=== PATIENT | male | born 1985 | race Caucasian/White ===

== ENCOUNTER 2021-08-14 18:41 | Emergency (ER) | payer SELFPAY ==
[~2021-08-14] VITALS: Ht 175.3 cm; Wt 104.3 kg
[2021-08-14] MEDS ORDERED: ALBUTEROL FS 2.5 MG/3 ML VIAL.NEB NEB ONE (19:00)
[2021-08-14] MEDS ORDERED: IPRATROPIUM NEB FS 0.5 MG/2.5 ML AMPUL.NEB NEB ONE (19:00)
[2021-08-14] MEDS ORDERED: predniSONE 20 MG TABLET PO ONE (19:00)
--- NOTE | 2021-08-14 19:00 | NUR ---
HEMANT [id number] @ 1843 "From [facility] SOB x couple days/worse now. Hx of Asthma +Wheezing. Initial O2sats 80%. Given 2doses albuterol w/improvement" PT A/OX4
[2021-08-14] MEDS ORDERED: predniSONE 20 MG TABLET ONE (19:07)
[2021-08-14] MEDS ORDERED: PRED50TA PO (19:13)
[2021-08-14] MEDS ORDERED: ALBU8.5H8 INH (19:13)
--- NOTE | 2021-08-14 19:13 | NUR ---
report given to nurse Dawood
[2021-08-14] MEDS ORDERED: IPRATROPIUM NEB FS 0.5 MG/2.5 ML AMPUL.NEB ONE (19:15)
[2021-08-14] MEDS ORDERED: ALBUTEROL FS 2.5 MG/0.5 ML VIAL.NEB ONE (19:15)
--- NOTE | 2021-08-14 19:38 | NUR ---
RT Patient received on room air, placed on nasal cannula 2LPM post treatment.
[2021-08-14] MEDS ORDERED: ALBUTEROL FS 2.5 MG/3 ML VIAL.NEB ONE (19:42)
--- NOTE | 2021-08-14 20:39 | NUR ---
Patient discharged to home in stable condition. RX Written and verbal after care instructions given. Patient verbalizes understanding of instruction. PT ambulatory with a steady gait
--- NOTE | 2021-08-14 20:45 | NUR ---
Note roland in EDM - 08/14/21 at 5 by DIPAK HEMANT CALDERÓN @ 1843 "From [facility] SOB x couple days/worse now. Hx of Asthma +Wheezing. Initial O2sats 80%. Given 2doses albuterol w/improvement" PT A/OX4
[2021-08-14 21:30] VITALS: BP 127/83
== END 2021-08-14 20:39 | disposition home or self-care (01) ==
LOC: ER 18:45
DX: J45.901 Unspecified asthma with (acute) exacerbation (principal); F17.210 Nicotine dependence, cigarettes, uncomplicated
CPT/HCPCS: 94640; 99285; 99406; J7512